=== PATIENT | female | born 2000 | race Caucasian/White ===

== ENCOUNTER 2020-06-25 07:12 | Outpatient (REF) | payer OTHER, SELFPAY | END 2020-06-25 07:13 | disposition home or self-care (01) | LOC: HO.WFDLDS 07:12 | PROVIDERS: Visit Provider Internal Medicine | DX: Z20.822 Contact with and (suspected) exposure to COVID-19 (principal) | CPT/HCPCS: 36415; C9803; U0003 ==

== ENCOUNTER 2020-07-16 08:33 | Outpatient (REF) | payer OTHER, SELFPAY | END 2020-07-16 08:34 | disposition home or self-care (01) | LOC: HO.WFDLDS 08:33 | PROVIDERS: PCP Internal Medicine; Visit Provider Internal Medicine | DX: Z20.822 Contact with and (suspected) exposure to COVID-19 (principal) | CPT/HCPCS: 36415; C9803; U0003; U0005 ==

== ENCOUNTER 2024-05-11 08:09 | Outpatient (AMB) | payer OTHER, SELFPAY ==
--- NOTE | 2024-05-11 08:10 | MHC.OFFWIV ---
Intake Vital Signs 05/11/24 08:21 Height 5 ft 4 in Weight 194 lb 6 oz BMI 33.4 BP 98/65 Blood Pressure Location Lt brachial Position Sitting Respiration 12 Pulse 76 Pulse Source Pulse Oximeter Pulse Oximetry (%) 99 Oxygen Delivery Method Room Air Intake Visit Reasons: Left Eye complaint Intake Note: Patient complaining of left eye itchy and discharge x 2 months [employer] Required: No Allergies azithromycin [Zithromax] Allergy (Unknown, Verified 05/11/24 08:31) Hives penicillin V Allergy (Unknown, Verified 05/11/24 08:31) Hives Medication List - Last Reconciled 05/11/24 by YORDY Jean No Known Home Meds Do you need a note to return to daycare/school/sports/work: No HPI HPI Comments History of Present Illness Details History of Present Illness The patient is a 23-year-old female presenting with symptoms related to her left eye. Approximately two months ago, she noted her left eye becoming significantly red. The symptoms included itchiness and an oozing discharge. The eye becomes increasingly red and presents with flakiness localized to the lower waterline worse @ the end of the day. There has been no trauma to the eye, no photophobia, nor any alterations in vision. Wears glasses. No contacts. UTD on vision exam. A previous treatment with cromolyn sodium eye drops for allergic conjunctivitis symptoms was attempted once without significant relief. Uses only in Spring for allergies. In addition, the patient reports historical exposure to environmental allergens during the springtime, but not during the current period. A painless bump formation has been present on the upper eyelid since November, remaining painless and stable without evaluation. Has not had medical treatment for the L eye itch/drainage or the painless bump. Offered and declined flu vaccine. Exam Awake alert NAD Head atraumatic PERRLA, EOMI, No photophobia. L upper lid there is a pink lump along the lash line, nasal aspect. L conjunctiva clear, sclera clear, purulent drainage noted inner canthus. No periorbital edema, erythema. Right lid, sclera, conjunctica WNL Plan - Conjunctivitis, unspecified: Initiate treatment with polymyxin B eye drops, one drop four times per day for five days. Recommend lid hygiene using [employer] tear-free baby shampoo to cleanse the eye area two to three times daily. Advise against the use of any eye makeup and prompt changing of towels and pillowcases to prevent reinfection. Monitor symptom resolution and communicate any persistent symptoms for further evaluation. - Eyelid mass: Encourage ophthalmological consultation for the evaluation of the persistent eyelid mass, given no current discomfort or change. Secondary recommendation includes consideration for referral to plastic surgery if excision becomes necessary. Patient was informed and verbally consented to the use of an ambient scribe for clinic note documentation during this visit. [facility] Medical History (Updated 05/11/24 @ 08:38 by Lolita Last [facility]) Panic attack Allergic rhinitis Family History (Updated 09/19/20 @ 08:30 by Eveline Lopez, JOLIE) Father No problems noted. Mother No problems noted. Paternal Grandmother Breast cancer Social History (Updated 09/19/20 @ 08:28 by Eveline Lopez RN) Alcohol intake: never Physical Exam Vital Signs: Last Vital Signs Pulse 76 05/11/24 08:21 Resp 12 05/11/24 08:21 BP 98/65 05/11/24 08:21 Pulse Ox 99 05/11/24 08:21 Oxygen Delivery Method Room Air 05/11/24 08:21 BMI result Body Mass Index 33.4 Assessment & Plan Assessment & Plan (1) Acute bacterial conjunctivitis of left eye: Code(s): H10.32 - Unspecified acute conjunctivitis, left eye (2) Influenza vaccination declined: Code(s): Z28.21 - Immunization not carried out because of patient refusal Plan . Medications: New polymyxin B sulf-trimethoprim 10,000 unit- 1 mg/mL APPLY TO BOTH EYES while awake; do not exceed 6 doses in 24 hours 1 drp ophthalmic (eye) QID 5 days 10 mL 0RF Patient Instructions: Put cold or warm wet cloths on your eye a few times a day if the eye hurts. Do not wear contact lenses or eye makeup until the pink eye is gone. Throw away any eye makeup you were using when you got pink eye. Clean your contacts and storage case. Wash bed linen after 24 hours of antibiotic eye drop use. Do not share eye drops. Use a clean towel to wash your face each day until symptoms are gone. This will help prevent recurrence. What is pink eye? [place] eye is a term people use to describe an infection or irritation of the eye. The medical term for pink eye is conjunctivitis. If you have pink eye, your eye (or eyes) might: ?Turn pink or red ?Weep or ooze a gooey liquid ?Become itchy or burn ?Get stuck shut, especially when you first wake up [place] eye can be caused by an infection, allergies, or an unknown irritation. Can you catch pink eye from someone else? Yes. When pink eye is caused by an infection, it can spread easily. Usually, people catch it from touching something that has been in contact with an infected person's eye. It can also be spread when an infected person touches someone else, and then that person touches their eye. If someone you know has pink eye, avoid touching their pillowcases, towels, or other personal items. When should I see a doctor or nurse? See your doctor or nurse if your eye hurts, or if you still have trouble seeing clearly after blinking. If you do not have these problems, but think you might have pink eye, your doctor or nurse might be able to give you advice over the phone. Can pink eye be treated? Most cases of pink eye go away on their own without treatment. But some types of pink eye can be treated. When pink eye is caused by infection, it is usually caused by a virus, so antibiotics will not help. Still, pink eye caused by a virus can last several days. ?[place] eye caused by an infection with bacteria can be treated with antibiotic eye drops, gel, or ointment. ?[place] eye caused by other problems can be treated with eye drops normally used to treat allergies. These drops will not cure the pink eye, but they can help with itchiness and irritation. When using eye drops for infection, do not touch your healthy eye after touching your infected eye. Also, do not touch the bottle or dropper directly onto 1 eye and then use it in the other. These things can cause the infection to spread from 1 eye to the other. If your eyelids feel swollen, it might also help to hold a cool wet cloth on the area. What if I wear contact lenses? If you wear contact lenses and you have symptoms of pink eye, it is really important to have a doctor look at your eyes. In people who wear contacts, the symptoms of pink eye can be caused by corneal abrasion. Corneal abrasion is a scratch on the eye and can be a serious problem. During treatment for eye infections, you might need to stop wearing your contacts for a short time. If your contacts are disposable, throw them away and use new ones. If your contacts are not disposable, you need to carefully clean them. You should also throw away your contact lens case and get a new one. When can I go back to work or school? If you have pink eye caused by an infection, remember that it can spread very easily. The best way to avoid spreading it is to stay away from other people until you no longer have symptoms. If this is not possible, wash your hands often (figure 1). It's also important to avoid touching your eyes and sharing items that could spread the infection. Schools and day cares usually have rules about when a child with pink eye can return. If a child has a bacterial infection, they will probably need to stay home until they have gotten antibiotic eye drops or ointment for 24 hours. Can pink eye be prevented? To keep from getting or spreading pink eye caused by an infection: ?Wash your hands often with soap and water. ?Try not to touch your eyes. ?Avoid sharing towels, bedding, or other personal items with a person who has pink eye. If your pink eye is caused by allergies, it might help to stay inside with the windows shut as much as possible during peak allergy seasons. What problems should I watch for? Call your doctor or nurse if: ?You have trouble seeing clearly after blinking. ?Your eye is still red or has drainage after 3 days. ?You have eye pain that is getting worse. Coding Level of Care Code Est Pt Level 3 (40000) Diagnoses Acute bacterial conjunctivitis of left eye H10.32 Influenza vaccination declined Z28.21
[2024-05-11 08:21] VITALS: BP 98/65; PULSE 76; RESP 12; O2SAT 99; BMI 33.4
== END 2024-05-11 08:38 | disposition home or self-care (01) ==
PROVIDERS: PCP Internal Medicine; Visit Provider Nurse Practitioner Family
DX: H10.32 Unspecified acute conjunctivitis, left eye (principal); Z28.21 Immunization not carried out because of patient refusal

== ENCOUNTER → 2024-05-11 08:09 | Outpatient (BNVA) | payer OTHER, SELFPAY | PROVIDERS: PCP Internal Medicine ==

== ENCOUNTER 2024-06-09 09:39 | Outpatient (AMB) | payer OTHER, SELFPAY ==
--- NOTE | 2024-06-09 10:07 | MHC.OFFWIV ---
Intake Vital Signs 06/09/24 10:08 Weight 195 lb BP 114/70 Blood Pressure Location Rt brachial Position Sitting Pulse 72 Pulse Source Pulse Oximeter Temp 98.2 F Temp Source Oral Pulse Oximetry (%) 99 Oxygen Delivery Method Room Air Intake Visit Reasons: EP LT ear blockage Intake Note: Patient here for left ear blockage that has been present for a few weeks. Patient Tobacco Use Status: Never used Tobacco Allergies azithromycin [Zithromax] Allergy (Unknown, Verified 06/09/24 10:08) Hives penicillin V Allergy (Unknown, Verified 06/09/24 10:08) Hives Do you need a note to return to daycare/school/sports/work: No HPI HPI Comments History of Present Illness Details History - The patient is a 23-year-old female presenting with a blocked sensation and hearing loss in the left ear. - Symptom duration is approximately one month, with recent exacerbation noted today; typically managed it by manipulating the ear. - Ear symptoms include full blockage and hearing fullness , with no accompanying fever or discharge. - Occasional transient ear pain and no history of frequent infections or recent upper respiratory tract infections. - Allergic to amoxicillin and azithromycin. - Has not had previous ear procedures such as tube placement. Physical Exam General: Cooperative, healthy appearing, comfortable and no acute distress Orientation/consciousness: Patient oriented x3 Limitations: No limitations Head: Normal to inspection Ears: as below Nose: Normal external nose present, Normal nares present and No nasal discharge present Face and sinus: Normal facial exam and Yes sinuses nontender Mouth: Normal oral and palatal mucosa present and moist mucous membranes Throat: Yes tonsils normal, Yes uvula midline. Posterior oropharynx erythema Eyes: Appearance normal, both eyes and all related structures Neck: Normal visual inspection Respiratory: Clear to auscultation bilaterally. Normal respiratory effort, able to speak in complete sentences, Actively coughing, no respiratory distress, not tachypneic, no tripod positioning and no use of accessory muscles Cardiovascular: Regular rate and rhythm. Normal S1 and S2 Skin: No rashes or lesions noted Neuro: Patient oriented x3 Extremities: Normal to inspection and Yes no clubbing, cyanosis or edema [facility] Medical History (Updated 06/09/24 @ 10:49 by Alivia Healy PA-C) Panic attack Allergic rhinitis Family History (Updated 09/19/20 @ 08:30 by Eveline Lopez RN) Father No problems noted. Mother No problems noted. Paternal Grandmother Breast cancer Social History (Updated 09/19/20 @ 08:28 by Eveline Lopez RN) Alcohol intake: never Patient Tobacco Use Status: Never used Tobacco Review of Systems Const All systems reviewed & are unremarkable except as noted in HPI and below Physical Exam Vital Signs: Last Vital Signs Temp 98.2 F 06/09/24 10:08 Pulse 72 06/09/24 10:08 BP 114/70 06/09/24 10:08 Pulse Ox 99 06/09/24 10:08 Oxygen Delivery Method Room Air 06/09/24 10:08 HEENT Ears: external ears normal, TM normal on the right, Abnormal EAC present (left) erythema, edema and EAC tenderness and TM abnormal (left) dull, wth effusion, erythematous and with loss of landmarks; with no myringotomy tubes present, not obstructed by cerumen and not perforated Assessment & Plan Assessment & Plan (1) Otitis media: Code(s): H66.90 - Otitis media, unspecified, unspecified ear Qualifiers: Otitis media type: suppurative Chronicity: acute Laterality: left Recurrence: non-recurrent Spontaneous tympanic membrane rupture: without spontaneous rupture Qualified Code(s): H66.002 - Acute suppurative otitis media without spontaneous rupture of ear drum, left ear Plan: The patient presents with symptoms of acute otitis externa of the left ear. Due to allergies, cefdinir is prescribed at 300 mg twice daily for seven days as the antibiotic treatment of choice. Additionally, Polymyxin B is selected for local treatment, with instructions for four drops in the affected ear four times a day. Therapy can be ceased after five days if symptoms markedly improve. The patient has been advised to remain vigilant for allergic reactions, particularly to cefdinir, and to discontinue usage in such circumstances, contacting the clinic for an alternative. Patient was informed and verbally consented to the use of an ambient scribe for clinic note documentation during this visit (2) Otitis externa: Code(s): H60.90 - Unspecified otitis externa, unspecified ear Qualifiers: Otitis externa type: other infective Chronicity: acute Laterality: left Qualified Code(s): H60.392 - Other infective otitis externa, left ear Plan: as above Medications: New mpsbejxz-[id number]-EJ 3.5-10,000-1 mg/mL-unit/mL-% 4 drps otic (ear) left QID 10 mL 0RF 7 days cefdinir 300 mg PO Q12H 14 caps 0RF Coding Level of Care Code Est Pt Level 3 (34185) Diagnoses Non-recurrent acute suppurative otitis media of left ear without spontaneous rupture of tympanic membrane H66.002 Otitis media type: suppurative Chronicity: acute Laterality: left Recurrence: non-recurrent Spontaneous tympanic membrane rupture: without spontaneous rupture Other infective acute otitis externa of left ear H60.392 Otitis externa type: other infective Chronicity: acute Laterality: left
[2024-06-09 10:08] VITALS: BP 114/70; PULSE 72; TEMP 36.8; O2SAT 99
== END 2024-06-09 12:01 | disposition home or self-care (01) ==
PROVIDERS: PCP Internal Medicine; Visit Provider Physician Assistant
DX: H66.002 Acute suppurative otitis media without spontaneous rupture of ear drum, left ear (principal); H60.392 Other infective otitis externa, left ear